=== PATIENT | male | born 1985 | race Caucasian/White ===

== ENCOUNTER 2017-05-07 16:19 | Emergency (ER) | payer BC, OTHER ==
[~2017-05-07] VITALS: Ht 188 cm; Wt 92.0 kg
[2017-05-07 16:26] VITALS: Ht 188 cm; Wt 92.0 kg
--- NOTE | 2017-05-07 17:40 | ERA ---
ER Documentation Chief Complaint Date/Time DATE: 05/07/17 TIME: 17:36 Chief Complaint intermittent cp and sob for 5 months took ativan at 1550 HPI 31-year-old male with a chief complaints of intermittent chest pain 4 months. Patient has a history of anxiety. Took Ativan 4 hours ago with minimal relief. It was seen by PCP 1 day ago. PCP wanted him to get admitted. Went to [facility] last night. [place] took EKG and blood stated that everything came back normal and sent him home with pain control and antibiotics. Patient has no new or worsening symptoms today. Presenting again to get admitted. Patient has no other complaints and describes no other associated manifestations. Nursing notes have been reviewed and are consistent with history given. ROS All systems reviewed and are negative except as per history of present illness. Allergies Allergies: Coded Allergies: No Known Allergy (Unverified , 05/07/17) Physical Exam Vitals Vital Signs Date Time Temp Pulse Resp B/P Pulse Ox O2 Delivery O2 Flow Rate FiO2 05/07/17 16:26 97.9 77 18 135/81 97 Physical Exam Const: Well-appearing. No acute distress. Head: Normocephalic, Atraumatic. Eyes: Non-injected; No discharge. EOMI and MARIA D bilaterally. Oral: No oral edema visualized. Mucous membranes moist and pink. Neck: No cervical lymphadenopathy, or masses palpated. Supple ~ No meningismus. Pulm: Good air movement in upper and lower respiratory tracts. Clear to auscultation bilaterally. No dyspnea or stridor. Cardio: Regular rate and rhythm; No murmurs, gallops or rubs auscultated. Radial pulses 2+ bilaterally. No cyanosis noted. Capillary refill less than 2 seconds. No murmur with handgrip. Chest tender to palpation. Abd: Normal bowel sounds. Soft, non tender, non distended. MS: Normal motor strength, normal tone with gross examination. Skin: No petechiae or rashes. Good turgor. Back: No midline, flank or CVA tenderness. Ext: No edema. Normal movement of all extremities grossly observed. Neur: Neurovascularly intact bilaterally. Psych: Normal Mood and Affect. Procedures/MDM Well-appearing 31-year-old male no acute distress present with a chief complaint of back chest pain intermittently 4 months as described in history and physical examination. Chest was tender to palpation. Full workup including blood work was done yesterday at [facility] and all came back within normal limits per patient's history. I little suspicion for ACS, pneumonia, pulmonary embolism, pericarditis, or other emergent cardiopulmonary pathologies. At this time the most likely diagnosis is costochondritis versus pleurisy versus chest pain of unknown etiology. EKG was taken, read by my attending as unremarkable. I presented the case to my attending who agrees that discharge with follow-up by acquisition lead/PCP is appropriate.I have spoke with the patient regarding their condition and future management. They have verbally responded that they understand their status and treatment plan. The patients vitals are stable, and their current condition is appropriate for discharge. The patient will be given discharge instructions with return precautions. Departure Diagnosis: Primary Impression: Chest pain Qualified Code: R07.9 - Chest pain, unspecified type Condition: Stable Additional Instructions: Follow up with your PCP within the next 1-3 days for a more thorough evaluation and a possible referral to a specialist. I will also tested with a acquisition lead if PCP is unavailable. Return the the emergency department immediately if symptoms worsen or change. If you have any questions regarding medications, ask your pharmacist or us before you leave. If any adverse reactions occur while taking your medications, discontinue the treatment and return to the emergency department immediately. Take your medications as directed, and complete the entire course of treatment. ARCHANA BUTLER PA-C May 07, 2017 17:40
[2017-05-07] MEDS ORDERED: ONDA4TAB14 PO (18:13)
== END 2017-05-07 18:19 | disposition home or self-care (01) ==
LOC: FTE 16:19
DX: R07.9 Chest pain, unspecified (principal)
CPT/HCPCS: 93005

== ENCOUNTER 2019-04-14 11:36 | Day surgery (SDC) | payer BC ==
[~2019-04-14] VITALS: Ht 188 cm; Wt 93.6 kg
[~2019-04-14 11:36] MED LIST: ONDA4TAB14 PO
[2019-04-14 13:19] VITALS: Ht 188 cm; Wt 93.6 kg
--- NOTE | 2019-04-14 13:55 | PREAC ---
Date/Time of Note Date/Time of Note DATE: 04/14/19 TIME: 13:54 Anesthesia Eval and Record Evaluation Time Pre-Procedure Interview DATE: 04/14/19 TIME: 13:54 Age 33 Sex male NPO: 8 hrs Preoperative diagnosis esophageal ulcer, diverticulitis Planned procedure EGD, colonoscopy Past Medical History Past Medical History: Includes GI: GERD, Other (esophageal ulcer, diverticulitis) Psych: Anxiety Surgery & Anesthesia Issues No known issue Meds Anticoagulation: No Beta Thomas within 24 hr: No Reason Beta Thomas not given: Pt. not on B-Thomas Reported Medications [None] No Conflict Check 04/14/19 Discontinued Scripts Ondansetron (Ondansetron Odt) 4 Mg Tab.rapdis, 4 MG PO Q6H PRN for NAUSEA AND/OR VOMITING, #10 TAB Prov:ARCHANA BUTLER PA-C 05/07/17 Meds reviewed: Yes Allergies Coded Allergies: No Known Allergy (Unverified , 05/07/17) Allergies Reviewed: Yes Labs/Studies Labs Reviewed: Reviewed by anesthesiologist test: N/A Pre-procedure Exam Airway: Adequate mouth opening, Adequate thyromental dist Mallampati: Mallampati II Teeth: Normal Lung: Normal Heart: Normal ASA Physical Status ASA physical status: 2 Emergency: None Planned Anesthetic General/MAC: Mask Planned Pain Management Parenteral pain med Pre-operative Attestations Prior to commencing anesthesia and surgery, the patient was re-evaluated, there was verification of: *The patient's identity *The results of appropriate recent lab work and preoperative vital signs *The above evaluation not changing prior to induction *Anesthetic plan, risk benefits, alternative and complications discussed with patient/family; questions answered; patient/family understands, accepts and wishes to proceed. ERIC RICKS MD Apr 14, 2019 13:55
[2019-04-14 14:02] VITALS: BP 131/78; PULSE 53; RESP 16
[2019-04-14] MEDS ORDERED: ONDANSETRON 4 MG INJ IV PRN (14:30)
[2019-04-14] MEDS ORDERED: PROPOFOL 60 ML ONE (14:46)
[2019-04-14] MEDS ORDERED: LIDOCAINE 2% (SDV) 5 ML INJ ONE (14:46)
[2019-04-14] MEDS ORDERED: PROPOFOL 20 ML ONE ×2 (14:54→15:08)
--- NOTE | 2019-04-14 15:16 | PAC ---
Date/Time of Note Date/Time of Note DATE: 04/14/19 TIME: 15:15 Post-Anesthesia Notes Post-Anesthesia Note Last documented vital signs Vital Signs Date Temp Pulse Resp B/P (MAP) Pulse Ox O2 O2 Flow FiO2 Time Delivery Rate 04/14/19 98.3 53 16 131/78 100 Room Air 14:02 (95) Activity: WNL Respiratory function: WNL Cardiovascular function: WNL Mental status: Baseline Pain reasonably controlled: Yes Hydration appropriate: Yes Nausea/Vomiting absent: Yes Comments BP: 116/58 HR: 60 RR: 15 T: 98 SaO2: 99% ERIC RICKS MD Apr 14, 2019 15:16
[2019-04-14 15:37] VITALS: BP 121/85; PULSE 58; RESP 16
== END 2019-04-14 16:52 | disposition home or self-care (01) ==
LOC: GIL 11:36
PROVIDERS: ATTEND Internal Medicine Gastroenterology
DX: K29.30 Chronic superficial gastritis without bleeding (principal); K57.30 Diverticulosis of large intestine without perforation or abscess without bleeding; K20.9 Esophagitis, unspecified
CPT/HCPCS: 43239; 45378; Z7610; 88305; 88312; 88313